=== PATIENT | male | born 1980 | race African-American/Black ===

== ENCOUNTER 2018-05-22 11:38 | Emergency (ER) | payer MEDICAID ==
[~2018-05-22] VITALS: Ht 162.6 cm; Wt 65.8 kg
[2018-05-22 11:46] VITALS: BP 133/86
[2018-05-22] MEDS ORDERED: CEFTRIAXONE 500 MG VIAL ONE (11:54)
[2018-05-22] MEDS ORDERED: AZITHROMYCIN 250 MG TABLET ONE (11:54)
[2018-05-22] MEDS ORDERED: LIDOCAINE /MPF 1% VIAL 5 ML VIAL ONE (11:54)
[2018-05-22] MEDS ORDERED: AZITHROMYCIN 250 MG TABLET PO ONE (12:00)
[2018-05-22] MEDS ORDERED: CEFTRIAXONE 500 MG VIAL IM ONE (12:00)
== END 2018-05-22 12:03 | disposition home or self-care (01) ==
LOC: ER 11:42
DX: A64 Unspecified sexually transmitted disease (principal)
CPT/HCPCS: 96372; 99283; A4606; J0696; J3490; Z7610

== ENCOUNTER 2019-01-14 10:26 | Emergency (ER) | payer MEDICAID, OTHER ==
[~2019-01-14] VITALS: Ht 165.1 cm; Wt 64.0 kg
--- NOTE | 2019-01-14 10:39 | NUR ---
BIB SELF W C/O INTERMITTENT LUQ ABD PAIN x 3MOS, LLQ PAIN RADIATING TO L TESTICLE x 3DAYS. TO ER BED 3, HOOKED TO MONITOR, DR HAYS AT BEDSIDE
[2019-01-14 10:58] LABS: BASOPHILS % (AUTO) 0.9 % (0.0-2.0); EOSINOPHILS % (AUTO) 0.5 % (0.0-6.0); HEMATOCRIT 49 % (39-51); HEMOGLOBIN 16.6 g/dL (13.5-17.5); LYMPHOCYTES % (AUTO) 44.7 % (20.0-44.0); MEAN CORPUSCULAR HGB CONC 34 g/dl (31.0-36.0); MEAN CORPUSCULAR VOLUME 87 fL (80-96); MONOCYTES # (AUTO) 0.4 /CMM (0.1-1.30); MONOCYTES % (AUTO) 7.8 % (2.0-12.0); NEUTROPHILS # (AUTO) 2.1 /CMM (1.8-8.9); NEUTROPHILS % (AUTO) 46.1 % (43.0-81.0); PLATELET COUNT (AUTO) 245 /CMM (150-450); RED BLOOD CELL COUNT(AUTO) 5.61 MIL/uL (4.5-6.0); WHITE BLOOD COUNT (AUTO) 4.5 K/uL (4.3-11.0)
[2019-01-14 10:58] LABS: APPEARANCE,URINE Clear (CLEAR); BILIRUBIN,URINE Negative (NEGATIVE); BLOOD, URINE Negative Ery/uL (NEGATIVE); COLOR,URINE Yellow (YELLOW); KETONES,URINE Negative (NEGATIVE); LEUKOCYTE ESTERASE ,URINE Negative (NEGATIVE); NITRITE, URINE Negative (NEGATIVE); PROTEIN,URINE Negative (NEGATIVE); UGLUCOSE Negative (NEGATIVE); UROBILINOGEN,URINE 0.2 EU/dL (0.2)
[2019-01-14 11:06] LABS: CALCIUM, SERUM 9.5 mg/dL (8.5-10.1); POTASSIUM 4.6 mmol/L (3.5-5.1)
[2019-01-14 11:11] LABS: ALBUMIN 3.9 g/dL (3.4-5.0); BILIRUBIN,DIRECT 0.2 mg/dL (0.0-0.2); TOTAL PROTEIN, SERUM 7.9 g/dL (6.4-8.2)
[2019-01-14 11:17] VITALS: BP 138/94
--- NOTE | 2019-01-14 11:32 | NUR ---
Patient discharged to home in stable condition. Written and verbal after care instructions given. Patient verbalizes understanding of instruction.
== END 2019-01-14 12:12 | disposition home or self-care (01) ==
LOC: ER 10:26
DX: R10.32 Left lower quadrant pain (principal)
CPT/HCPCS: 36415; 80048; 80076; 81001; 83690; 85025; 99283; A4606; 81000-TC